=== PATIENT | male | born 1970 | race African-American/Black ===

== ENCOUNTER 2019-02-03 19:06 | Emergency (ER) | payer OTHER ==
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
[2019-02-03] MEDS ORDERED: Ketorolac *IM* INJ* 60 MG/2 ML VIAL IM ONE (20:47)
[2019-02-03 21:31] VITALS: BP 128/83
== END 2019-02-03 21:21 | disposition home or self-care (01) ==
LOC: ED 19:06
DX: M62.838 Other muscle spasm (principal); S16.1XXA Strain of muscle, fascia and tendon at neck level, initial encounter; V43.52XA Car driver injured in collision with other type car in traffic accident, initial encounter; Y92.410 Unspecified street and highway as the place of occurrence of the external cause; M50.31 Other cervical disc degeneration, high cervical region
CPT/HCPCS: 70450; 72125; 96372; 99282; J1885